=== PATIENT | female | born 1975 | race Caucasian/White ===

== ENCOUNTER 2017-02-16 21:11 | Emergency (ER) | payer OTHER ==
[2017-02-16 21:25] VITALS: BP 119/73
--- NOTE | 2017-02-16 21:35 | ER Document Report ---
ED Extremity Problem, Lower - General Chief Complaint: Leg Pain Stated Complaint: LEG PAIN Time Seen by Provider: 02/16/17 21:33 Notes: Patient is a 41-year-old female comes emergency department for chief complaint of left calf pain, she states that at the beginning of the month she did fly home from [place], she was evaluated earlier at urgent care and had an elevated d- dimer, she was then sent to the emergency department for additional evaluation. Patient does not smoke, she is not on a contraceptive, she has never had a blood clot before. She takes no daily medications. She denies any medical history. She states that she has never had a blood clot, family has never had a blood clot. She denies shortness of breath, chest pain, or any symptoms other than tightness in her left calf when she is walking or exercising. She denies pain at rest. She denies swelling in the foot. TRAVEL OUTSIDE OF THE [place] IN LAST 30 DAYS: No - Related Data Allergies/Adverse Reactions: No Known Allergies Allergy (Verified 02/16/17 23:03) Past Medical History - General Information source: Patient - Social History Smoking Status: Never Smoker Frequency of alcohol use: None Drug Abuse: None Lives with: Family Family History: Reviewed & Not Pertinent Patient has suicidal ideation: No Patient has homicidal ideation: No - Medical History Medical History: Negative Renal/ Medical History: Denies: Hx Peritoneal Dialysis Surgical Hx: Negative - Immunizations Immunizations up to date: Yes Hx Diphtheria, Pertussis, Tetanus Vaccination: Yes - already received Review of Systems - Review of Systems Constitutional: No symptoms reported EENT: No symptoms reported Cardiovascular: See HPI Respiratory: No symptoms reported Gastrointestinal: No symptoms reported Genitourinary: No symptoms reported Female Genitourinary: No symptoms reported Musculoskeletal: See HPI Skin: No symptoms reported Hematologic/Lymphatic: No symptoms reported Neurological/Psychological: No symptoms reported Physical Exam - Vital signs Vitals: Temp Pulse Resp BP Pulse Ox 97.6 F 68 18 119/73 100 02/16/17 21:21 02/16/17 21:21 02/16/17 21:21 02/16/17 21:21 02/16/17 21:21 Interpretation: Normal - General General appearance: Appears well, Alert, Other - Patient appears to speak with slight speech impediment and appears to be slightly hard of hearing In distress: None - HEENT Head: Normocephalic, Atraumatic Eyes: Normal Conjunctiva: Normal Extraocular movements intact: Yes Eyelashes: Normal Pupils: PERRL Ears: Normal External canal: Normal Tympanic membrane: Normal Sinus: Normal Nasal: Normal Mouth/Lips: Normal Mucous membranes: Normal Pharynx: Normal Neck: Normal - Respiratory Respiratory status: No respiratory distress Chest status: Nontender Breath sounds: Normal Chest palpation: Normal - Cardiovascular Rhythm: Regular Heart sounds: Normal auscultation Murmur: No - Abdominal Inspection: Normal Distension: No distension Bowel sounds: Normal Tenderness: Nontender Organomegaly: No organomegaly - Back Back: Normal, Nontender. No: Tender, CVA tenderness - Extremities General upper extremity: Normal inspection, Nontender, Normal ROM, Normal strength General lower extremity: Normal inspection, Nontender, Normal color, Normal ROM , Normal strength, Normal temperature, Normal weight bearing. No: Tender, Edema , Ganesh's sign - Neurological Neuro grossly intact: Yes Cognition: Normal Orientation: AAOx4 Sun Coma Scale Eye Opening: Spontaneous Sun Coma Scale Verbal: Oriented [place] Coma Scale Motor: Obeys Commands [place] Coma Scale Total: 15 Speech: Normal Motor strength normal: LUE, RUE, LLE, RLE Sensory: Normal - Psychological Associated symptoms: Normal affect, Normal mood - Skin Skin Temperature: Warm Skin Moisture: Dry Skin Color: Normal Course - Re-evaluation Re-evalutation: Physical examination is completely unremarkable. I do not appreciate any swelling of the lower extremity or foot, I do not appreciate any hard or painful areas. Negative Homans sign. Ultrasound shows no DVT on preliminary results. Patient with no hypoxia, tachypnea, tachycardia, or complaints of chest pain or shortness of breath. Discussed results with patient. Patient will hold her Xarelto, discussed conservative management for her calf pain, recommended 1-2 week follow-up for potential re-ultrasound if symptoms continue, patient does have excellent primary care follow-up. Discussed return precautions in detail as well. Patient states understanding and agreement. - Vital Signs Vital signs: Temp Pulse Resp BP Pulse Ox 97.6 F 68 18 119/73 100 02/16/17 21:21 02/16/17 21:21 02/16/17 21:21 02/16/17 21:21 02/16/17 21:21 Discharge - Discharge Clinical Impression: Pain of left calf Condition: Stable Disposition: HOME, SELF-CARE Additional Instructions: Your ultrasound does not show a blood clot in your leg on initial readings. Recommend taking an anti-inflammatory [id number], applying ice to the area if needed, doing stretches. If pain symptoms continue I recommend 1-2 week follow-up with your primary care provider for a repeat ultrasound. Return immediately to the emergency department for any concerning symptoms including chest pain, difficulty breathing, swelling of your leg, redness or fever, or any other concerning symptoms. Referrals: GREGOR TELLO MD [Primary Care Provider] - Follow up as needed
--- NOTE | 2017-02-16 22:27 | RADIOLOGY REPORT (SQ) ---
EXAM DESCRIPTION: VENOUS UNILATERAL LOWER COMPLETED DATE/TIME: 02/16/2017 10:20 pm REASON FOR STUDY: left calf pain, pos d-dimer COMPARISON: None. TECHNIQUE: Dynamic and static ballard scale and color images acquired of the left leg venous system. Se lected spectral images acquired with additional compression and augmentation maneuvers. The contralat eral common femoral vein and saphenofemoral junction were also imaged. Images stored on PACS. LIMITATIONS: None. FINDINGS: COMMON FEMORAL: Normal phasicity, compression and augmentation. No visualized echogenic ma terial on ballard scale. No defects on color images. FEMORAL: Normal compression and augmentation. No visualized echogenic material on ballard scale. No defe cts on color images. POPLITEAL: Normal compression, augmentation. No visualized echogenic material on ballard scale. No defec ts on color images. CALF VESSELS: Normal compression, augmentation. No visualized echogenic material on ballard scale. No de fects on color images. GSV and SSV: Normal compression, augmentation. No visualized echogenic material on ballard scale. No def ects on color images. ANY DEEP VENOUS INSUFFICIENCY: Not evaluated. ANY EVIDENCE OF POPLITEAL CYST: No. OTHER: No other significant finding. CONTRALATERAL COMMON FEMORAL VEIN AND SAPHENOFEMORAL JUNCTION: Normal phasicity, compression and augmentation. No visualized echogenic material on ballard scale. No de fects on color images. IMPRESSION: NO EVIDENCE DVT OR SVT IN THE LEFT LEG. TECHNICAL DOCUMENTATION: JOB ID: [id number] [employer]- All Rights Reserved
== END 2017-02-16 23:07 | disposition home or self-care (01) ==
LOC: ER 21:11
DX: M79.662 Pain in left lower leg (principal)
CPT/HCPCS: 93971; 99283